=== PATIENT | male | born 1945 | race American Indian/Alaskan Native ===

== ENCOUNTER 2019-04-15 19:33 | Emergency (ER) | payer MEDICARE ==
--- NOTE | 2019-04-15 20:29 | Event Note ---
ED Screening Note ED Screening Note: FEVER AND CHILLS MIN COUGH NAUSEA NO PROBLEMS URINATING TACHY IN TRIAGE ILL APPEARING This initial assessment/diagnostic orders/clinical plan/treatment(s) is/are subject to change based on patients health status, clinical progression and re- assessment by fellow clinical providers in the ED. Further treatment and workup at subsequent clinical providers discretion. Patient/guardian urged not to elope from the ED as their condition may be serious if not clinically assessed and managed. Initial orders include:
--- NOTE | 2019-04-15 21:02 | XRay Report ---
PROCEDURE: XR CHEST ROUTINE 2V TECHNIQUE: PA and lateral chest radiographs were obtained. HISTORY: FEVER COMPARISONS: June 02, 2018. FINDINGS: Heart: Normal. Mediastinum/Vessels: Normal. Lungs/Pleural space: There is mild elevation of right hemidiaphragm. There are no confluent infiltra pawel or mass lesions. Pleural spaces are clear.. Bony thorax: No acute osseous abnormality. IMPRESSION: No acute pulmonary process.. This document is electronically signed by Bipin Sotelo MD., April 15 2019 09:00:12 PM ET
[2019-04-15 21:17] LABS: Hematocrit 33.8 % (35.5-45.6); Hemoglobin 11.9 gm/dl (11.8-15.2); Mean Corpuscular HGB Conc 35 % (32-34); Mean Corpuscular Volume 94 fl (84-94); Platelet Count 131 K/mm3 (140-440); Red Blood Count 3.59 M/mm3 (3.65-5.03)
[2019-04-15 21:27] LABS: Bacteria,Urine 3+ /HPF (Negative); Bilirubin,Urine NEG (Negative); Blood,Urine LG (Negative); Color,Urine Amber (Yellow); Mucus,Urine FEW /HPF
[2019-04-15] MEDS ORDERED: ROCEPHIN/NS 1 GM/50 ML 1 GM/50 ML BAG IV ONE (21:29)
[2019-04-15] MEDS ORDERED: NACL 0.9% 1000 ML 1,000 ML IV ONE (21:29)
[2019-04-15 21:41] LABS: Alanine Aminotransferase 27 units/L (7-56); Albumin 3.2 g/dL (3.9-5); BUN/Creatinine Ratio 14; Blood Urea Nitrogen 15 mg/dL (9-20); Calcium 8.9 mg/dL (8.4-10.2); Hemolysis Index 6
--- NOTE | 2019-04-15 21:46 | Emergency Department Report ---
HPI - General Chief Complaint: Fever Time Seen by Provider: 04/15/19 21:29 - HPI HPI: 73 year-old male presents to the emergency department from home with complaint of a 2 day history of fever, chills, nausea and vomiting. He denies any cough, sore throat, ear pain, chest pain, rash, shortness of breath. He has a past medical history of hypertension. The patient took some Aleve for his symptoms earlier in the day with some transient relief. No recent travel or sick contacts at home. His primary care physician is Dr. Ghosh. ED Past Medical Hx - Past Medical History Previous Medical History?: Yes Hx Hypertension: Yes Hx Heart Attack/AMI: No Hx GERD: Yes Hx Liver Disease: Yes (transaminitis presumed 2/2 cholecystitis) Hx Renal Disease: No Hx Seizures: No Hx Asthma: No - Surgical History Past Surgical History?: Yes Hx Open Heart Surgery: No Additional Surgical History: BACK SURGERY, RIGHT SHOULDER SURGERY,PROSTATE SURGERY - Social History Smoking Status: Never Smoker Substance Use Type: None - Medications Home Medications: Home Medications Medication Instructions Recorded Confirmed Last Taken Type Duloxetine HCl [Cymbalta] 60 mg PO BID 06/03/18 06/03/18 Unknown History amLODIPine [Norvasc] 5 mg PO DAILY 06/03/18 06/03/18 Unknown History Sulfamethoxazole/Trimethoprim 1 each PO BID #10 tablet 04/16/19 Unknown Rx [Bactrim DS TAB] ED Review of Systems ROS: Stated complaint: CHILLS/NAUSEA Other details as noted in HPI Comment: All other systems reviewed and negative Constitutional: chills, fever Eyes: denies: eye pain, vision change ENT: denies: ear pain, throat pain Respiratory: denies: cough, shortness of breath Cardiovascular: denies: chest pain, palpitations Gastrointestinal: denies: abdominal pain, vomiting Musculoskeletal: myalgia (body aches). denies: joint swelling Skin: denies: rash, lesions Neurological: denies: headache, weakness Physical Exam - Physical Exam Vital Signs: Vital Signs 04/15/19 20:26 Temperature 98.2 F Pulse Rate 118 H Respiratory 18 Rate Blood Pressure 139/59 O2 Sat by Pulse 97 Oximetry Physical Exam: GENERAL: The patient is well-developed well-nourished. HENT: Normocephalic. Atraumatic. Patient has moist mucous membranes. Oropharynx is clear without tonsillar hypertrophy, erythema or exudates. EYES: Extraocular motions are intact. Pupils equal reactive to light bilaterally. NECK: Supple. Trachea is midline. CHEST/LUNGS: Clear to auscultation. There is no respiratory distress noted. HEART/CARDIOVASCULAR: Regular. There is mild tachycardia. There is no murmur. ABDOMEN: Abdomen is soft, nontender. Patient has normal bowel sounds. There is no abdominal distention. SKIN: Skin is warm and dry. NEURO: The patient is awake, alert, and oriented. The patient is cooperative. The patient has no focal neurologic deficits. The patient has normal speech. MUSCULOSKELETAL: There is no tenderness or deformity. There is no evidence of acute injury. ED Course Vital Signs 04/15/19 20:26 Temperature 98.2 F Pulse Rate 118 H Respiratory 18 Rate Blood Pressure 139/59 O2 Sat by Pulse 97 Oximetry ED Medical Decision Making - Lab Data Result diagrams: 04/15/19 20:54 04/15/19 20:54 - EKG Data -: EKG Interpreted by Me EKG shows normal: sinus rhythm, axis (left axis deviation), intervals, QRS complexes (LVH), ST-T waves Rate: tachycardia (101 bpm) - EKG Data When compared to previous EKG there are: previous EKG unavailable Interpretation: other (sinus tach at 101 bpm, LAD, LVH) - Radiology Data Radiology results: image reviewed interpreted by me: Chest x-ray does not show any acute process. There are no pleural effusions, obvious pneumonia and there is no pneumothorax. - Medical Decision Making This patient presents to the emergency department with some intermittent fevers and body aches. His vital signs are stable throughout the ED course including being afebrile and he has not had any antipyretics or NSAIDs since early this morning. Patient's labs are mostly unremarkable except for a mild urinary tract infection and some hypokalemia with a potassium of 2.9. He was given both oral and IV potassium for replacement. The patient was given a dose of Rocephin for the urinary tract infection. He was reevaluated multiple times over multiple hours and is feeling improved. He has remained stable. He has good follow-up with primary care. Patient will be discharged home with information about hypokalemia, an antibiotic for the urinary tract infection. He will return to the ER with any worsening of his symptoms or any acute distress. - Differential Diagnosis UTI, sepsis, viral syndrome Critical Care Time: No Critical care attestation.: If time is entered above; I have spent that time in minutes in the direct care of this critically ill patient, excluding procedure time. ED Disposition Clinical Impression: Body aches, Intermittent fever, Hypokalemia UTI (urinary tract infection) Qualifiers: Urinary tract infection type: acute cystitis Hematuria presence: without hematuria Qualified Code(s): N30.00 - Acute cystitis without hematuria Disposition: TO HOME OR SELFCARE Is pt being admited?: No Condition: Stable Instructions: Urinary Tract Infection in Men (ED), Hypokalemia (ED) Additional Instructions: Please follow-up with your primary care physician in the next few days. Return to the emergency Department with any worsening of her symptoms or any acute distress. Take the antibiotics as prescribed. You can take Tylenol every 4 hours and ibuprofen every 6 hours, using weight- based dosing on the back of the bottle, as needed for fever or discomfort. Prescriptions: Sulfamethoxazole/Trimethoprim [Bactrim DS TAB] 1 each PO BID #10 tablet Referrals: ADITI GHOSH MD [Staff Physician] - 2-3 Days Time of Disposition: 00:55
[2019-04-15] MEDS ORDERED: K-DUR PO ONE (22:43)
[2019-04-15] MEDS ORDERED: KCL 10MEQ/100ML 10 MEQ/100 ML BAG IV ONE (22:44)
[2019-04-15 22:56] VITALS: BP 123/59
[2019-04-16] MEDS ORDERED: TORADOL IV ONE (00:19)
== END 2019-04-16 01:25 | disposition home or self-care (01) ==
LOC: ED 19:33
DX: N39.0 Urinary tract infection, site not specified (principal); E87.6 Hypokalemia; M79.10 Myalgia, unspecified site; I10 Essential (primary) hypertension; K21.9 Gastro-esophageal reflux disease without esophagitis; Z98.890 Other specified postprocedural states; Z79.899 Other long term (current) drug therapy
CPT/HCPCS: 36415; 71046; 80053; 81001; 82140; 85027; 87040; 87076; 87086; 87186; 93005; 93010; 96365; 96367; 96375; 99284; J0696; J1885; J3480; J7030

== ENCOUNTER 2019-04-16 10:04 | Inpatient (IN) | payer MEDICARE ==
--- NOTE | 2019-04-16 11:07 | Emergency Department Report ---
ED General Adult HPI - General Chief complaint: Recheck/Abnormal Lab/Rx Stated complaint: ABNORMAL LABS Time Seen by Provider: 04/16/19 10:56 Source: patient, old records reviewed Mode of arrival: Ambulatory Limitations: No Limitations - History of Present Illness Initial comments: 73-year-old male with a past medical history GERD, hypertension, and liver disease presents to the hospital after being called back by hospital staff for positive blood cultures. Patient was seen here and evaluated in the ED yesterday for generalized body aches, fevers, and myalgias for the past 4 days. She also had associated nausea, vomiting, and diarrhea have since improved. He denies cough or cold symptoms, abdominal pain, or dysuria. Patient was diagnosed with UTI and received 1 dose of IV Rocephin 1 g at 21:29 prior to discharge. Patient was discharged on Bactrim twice a day but has not taken a dose this morning. Patient reports feeling better after ED treatment. Preliminary blood cultures 2 positive for gram-negative rods and urine culture pending. PMD: Dr. Rodriguez - Related Data Home Medications Medication Instructions Recorded Confirmed Last Taken Duloxetine HCl [Cymbalta] 60 mg PO BID 06/03/18 06/03/18 Unknown amLODIPine [Norvasc] 5 mg PO DAILY 06/03/18 06/03/18 Unknown Previous Rx's Medication Instructions Recorded Last Taken Type Sulfamethoxazole/Trimethoprim 1 each PO BID #10 tablet 04/16/19 Unknown Rx [Bactrim DS TAB] Allergies Allergy/AdvReac Type Severity Reaction Status Date / Time No Known Allergies Allergy Verified 04/16/19 10:06 ED Review of Systems ROS: Stated complaint: ABNORMAL LABS Other details as noted in HPI Comment: All other systems reviewed and negative ED Past Medical Hx - Past Medical History Previous Medical History?: Yes Hx Hypertension: Yes Hx Heart Attack/AMI: No Hx GERD: Yes Hx Liver Disease: Yes (transaminitis presumed 2/2 cholecystitis) Hx Renal Disease: No Hx Seizures: No Hx Asthma: No - Surgical History Hx Open Heart Surgery: No Additional Surgical History: BACK SURGERY, RIGHT SHOULDER SURGERY,PROSTATE SURGERY - Social History Smoking Status: Never Smoker Substance Use Type: Prescribed - Medications Home Medications: Home Medications Medication Instructions Recorded Confirmed Last Taken Type Duloxetine HCl [Cymbalta] 60 mg PO BID 06/03/18 06/03/18 Unknown History amLODIPine [Norvasc] 5 mg PO DAILY 06/03/18 06/03/18 Unknown History Sulfamethoxazole/Trimethoprim 1 each PO BID #10 tablet 04/16/19 Unknown Rx [Bactrim DS TAB] ED Physical Exam - General Limitations: No Limitations - Other Other exam information: General: No limitations, patient is alert in no acute distress Head exam: Atraumatic, normocephalic Eyes exam: Normal appearance ENT: Moist mucous membrane Neck exam: Normal inspection, full range of motion, no meningismus nontender Respiratory exam: Clear to auscultation bilateral, no wheezes, rales, crackles Cardiovascular: Normal rate and rhythm, normal heart sounds Abdomen: Soft, nondistended, and nontender, with normal bowel sounds, no re bound, or guarding Extremity: Full range of motion normal inspection no deformity Back: Normal Inspection, full range of motion, no tenderness Neurologic: Alert, oriented x3, cranial nerves intact, no motor or sensory deficit Psychiatric: normal affect, normal mood Skin: Warm, dry, intact ED Course Vital Signs 04/16/19 04/16/19 10:09 11:21 Temperature 97.9 F Pulse Rate 82 64 Respiratory 18 16 Rate Blood Pressure 121/61 Blood Pressure 135/64 [Left] O2 Sat by Pulse 99 99 Oximetry ED Medical Decision Making - Lab Data Result diagrams: 04/16/19 11:38 04/16/19 11:38 Lab Results 04/16/19 04/16/19 Range/Units 11:38 11:38 WBC 5.4 (4.5-11.0) K/mm3 RBC 3.48 L (3.65-5.03) M/mm3 Hgb 11.2 L (11.8-15.2) gm/dl Hct 32.6 L (35.5-45.6) % MCV 94 (84-94) fl MCH 32 (28-32) pg MCHC 35 H (32-34) % RDW 15.0 (13.2-15.2) % Plt Count 130 L (140-440) K/mm3 Lymph % (Auto) 7.8 L (13.4-35.0) % [place] % (Auto) 10.6 H (0.0-7.3) % Eos % (Auto) 0.1 (0.0-4.3) % Baso % (Auto) 0.2 (0.0-1.8) % Lymph # 0.4 L (1.2-5.4) K/mm3 [place] # 0.6 (0.0-0.8) K/mm3 Eos # 0.0 (0.0-0.4) K/mm3 Baso # 0.0 (0.0-0.1) K/mm3 Seg Neutrophils % 81.3 H (40.0-70.0) % Seg Neutrophils # 4.4 (1.8-7.7) K/mm3 Sodium 135 L (137-145) mmol/L Potassium 3.8 D (3.6-5.0) mmol/L Chloride 99.8 (98-107) mmol/L Carbon Dioxide 26 (22-30) mmol/L Anion Gap 13 mmol/L BUN 15 (9-20) mg/dL Creatinine 1.0 (0.8-1.5) mg/dL Estimated GFR > 60 ml/min BUN/Creatinine Ratio 15 % Glucose 112 H (75-100) mg/dL Calcium 9.3 (8.4-10.2) mg/dL Magnesium 2.10 (1.7-2.3) mg/dL - Medical Decision Making + blood cultures + UTI no signs of sepsis clinically or septic shock at this time case d/w PMD who will admit Hypokalemia improved with prior tx, mag normal - Differential Diagnosis sepsis, UTI, viral syndrome Critical Care Time: No Critical care attestation.: If time is entered above; I have spent that time in minutes in the direct care of this critically ill patient, excluding procedure time. ED Disposition Clinical Impression: Body aches, UTI (urinary tract infection), Positive blood culture, Thrombocytopenia Disposition: OP ADMIT IP TO THIS HOSP Is pt being admited?: Yes Condition: Stable Time of Disposition: 11:10 (Dr Rodriguez)
[2019-04-16 11:54] LABS: Basophils % (Auto) 0.2 % (0.0-1.8); Eosinophils % (Auto) 0.1 % (0.0-4.3); Hematocrit 32.6 % (35.5-45.6); Hemoglobin 11.2 gm/dl (11.8-15.2); Lymphocytes # (Auto) 0.4 K/mm3 (1.2-5.4); Lymphocytes % (Auto) 7.8 % (13.4-35.0); Mean Corpuscular HGB Conc 35 % (32-34); Mean Corpuscular Volume 94 fl (84-94); Monocytes # (Auto) 0.6 K/mm3 (0.0-0.8); Monocytes % (Auto) 10.6 % (0.0-7.3); Platelet Count 130 K/mm3 (140-440); Red Blood Count 3.48 M/mm3 (3.65-5.03)
[2019-04-16 12:08] LABS: BUN/Creatinine Ratio 15; Blood Urea Nitrogen 15 mg/dL (9-20); Calcium 9.3 mg/dL (8.4-10.2); Hemolysis Index 6
--- NOTE | 2019-04-16 12:37 | History and Physical Report ---
History of Present Illness Date of examination: 04/16/19 Date of admission: 04/16/19 Chief complaint: Sepsis, UTI History of present illness: 73-year-old male with a past medical history GERD, hypertension, and liver disease presents to the hospital after being called back by hospital staff for positive blood cultures. Patient was seen here and evaluated in the ED yesterday for generalized body aches, fevers, and myalgias for the past 4 days. She also had associated nausea, vomiting, and diarrhea have since improved. He denies cough or cold symptoms, abdominal pain, or dysuria. Patient was diagnosed with UTI and received 1 dose of IV Rocephin 1 g at 21:29 prior to discharge. Patient was discharged on Bactrim twice a day but has not taken a dose this morning. Patient reports feeling better after ED treatment. Preliminary blood cultures 2 positive for gram-negative rods and urine culture pending. PMD: Dr. Rodriguez Past History Past Medical History: hypertension, other (liver disease) Past Surgical History: Other (back surgery, right shoulder surgery, post the surgeon,) Social history: denies: smoking, alcohol abuse Family history: no significant family history Medications and Allergies Allergies Allergy/AdvReac Type Severity Reaction Status Date / Time No Known Allergies Allergy Verified 04/16/19 10:06 Home Medications Medication Instructions Recorded Confirmed Last Taken Type Duloxetine HCl [Cymbalta] 60 mg PO BID 06/03/18 06/03/18 Unknown History amLODIPine [Norvasc] 5 mg PO DAILY 06/03/18 06/03/18 Unknown History Sulfamethoxazole/Trimethoprim 1 each PO BID #10 tablet 04/16/19 Unknown Rx [Bactrim DS TAB] Active Meds: Review of systems Constitutional: Well Nourished and Well developed. Head: NC/ AT Eyes: Denies any visual impairments. No discharge from the eyes Nose: Denies any rhinorrhea or epistaxis Throats: Denies any post nasal drainage. Ears: Denies any hearing deficits Cardiovascular system: Denies any chest pain, shortness of breath, orthopnea, paroxysmal nocturnal dyspnea, or palpitation. Respiratory system: Denies any cough, difficulty breathing, wheezing, pleuritic chest pain, Gastrointestinal system: Denies any abdominal pain, nausea vomiting, hematemesis or melena. Neurological system: Denies any headache, slurred speech, facial droop, lateralizing weakness Genitalia system: Denies any dysuria, urinary frequency or urgency, urethral discharge Skin: No rashes, hyperpigmented spots. Hematological: Denies any cervical tenderness hemorrhages or petechia. Immunological: Denies any multiple septic spots, Lymphatic: Denies any generalized lymphadenopathy. Endocrine: Denies any polyuria, polydipsia, polyphagia. No heat or cold intolerance. Musculoskeletal system: No joint pain or swelling. Psych: No visual, tactile, auditory or hallucination Exam - Physical Exam Narrative exam: Constitutional: Well-nourished well-developed. In no distress Head: Normocephalic atraumatic Eyes: Pupils are equal round and reactive to light Nose: No enlarged turbinates, no septal deviation. Mouth: Moist mucous membranes. Neck: Supple no thyromegaly. No bruit. No JVD Heart: Regular rate and rhythm, S1-S2 normal. No rubs murmurs or gallop Lungs: Clear to auscultation bilaterally. no rales or rhonchi Abdomen: Soft, nontender. Bowel sound are present. Extremities: No edema, no cyanosis, no clubbing. Neuro: Alert oriented Oriented x3. No focal sensory or motor deficit. Skin: No rashes or hyperpigmented spots Musculoskeletal system: No joint pain or swelling Hematological: No petechia or subcutanous hemorrhages. Immunological: No multiple septic spots on the skin Lymphatic: No generalized lymphadenopathy Psychiatry: Euthymic. Calm. - Constitutional Vitals: Temp Pulse Resp BP Pulse Ox 97.9 F 64 16 135/64 99 04/16/19 10:09 04/16/19 11:21 04/16/19 11:21 04/16/19 11:21 04/16/19 11:21 Results - Labs CBC & Chem 7: 04/16/19 11:38 04/16/19 11:38 Labs: Abnormal lab results 04/16/19 04/16/19 Range/Units 11:38 11:38 RBC 3.48 L (3.65-5.03) M/mm3 Hgb 11.2 L (11.8-15.2) gm/dl Hct 32.6 L (35.5-45.6) % MCHC 35 H (32-34) % Plt Count 130 L (140-440) K/mm3 Lymph % (Auto) 7.8 L (13.4-35.0) % [place] % (Auto) 10.6 H (0.0-7.3) % Lymph # 0.4 L (1.2-5.4) K/mm3 Seg Neutrophils % 81.3 H (40.0-70.0) % Sodium 135 L (137-145) mmol/L Glucose 112 H (75-100) mg/dL Assessment and Plan - Sepsis from UTI Blood culture was positive for gram-negative rods in 2 of 2 bottles Follow urine culture Comments patient on IV Rocephin - UTI Obtain urine culture Constant with IV Rocephin - Hypokalemia Supplement - Abnormal liver enzymes Current transaminases Obtain Ultrasound of the liver and gallbladder - Hyperglycemia Obtain A1c - DVT prophylaxis with Lovenox and GI with Pepcid - ACP: Patient is full code - Disposition discharge home when clinically stable - Time spent during this admission: 35 minutes in direct patient care and review of laboratory and radiological data, explanaing of care plan to the patiet
[2019-04-16] MEDS ORDERED: PEPCID IV ONE (12:54)
[2019-04-16] MEDS: PEPCID IV SCH ×2 (12:58→21:18)
[2019-04-16] MEDS: ROCEPHIN/NS 1 GM/50 ML 1 GM/50 ML BAG IV SCH (12:58)
[2019-04-16] MEDS ORDERED: NON-FORMULARY (Duloxetine Hcl [Cymbalta] 60 MG) PO SCH (13:00)
[2019-04-16] MEDS ORDERED: NORVASC ONE (14:18)
[2019-04-16] MEDS: NORVASC PO SCH (14:20)
[2019-04-16] MEDS: CYMBALTA PO SCH ×2 (18:01→21:18)
[2019-04-16] MEDS: LOVENOX SUB-Q SCH (21:18)
[2019-04-17] MEDS: CYMBALTA PO SCH ×2 (09:47→21:07)
[2019-04-17] MEDS: PEPCID IV SCH ×2 (09:47→21:06)
[2019-04-17] MEDS: NORVASC PO SCH (09:47)
[2019-04-17] MEDS: ROCEPHIN/NS 1 GM/50 ML 1 GM/50 ML BAG IV SCH (15:12)
[2019-04-17] MEDS: LOVENOX SUB-Q SCH (21:06)
[2019-04-18] MEDS: NORVASC PO SCH (09:10)
[2019-04-18] MEDS: CYMBALTA PO SCH ×2 (09:10→21:33)
[2019-04-18] MEDS: PEPCID IV SCH ×2 (09:10→21:33)
[2019-04-18] MEDS: ROCEPHIN/NS 1 GM/50 ML 1 GM/50 ML BAG IV SCH (13:40)
[2019-04-18] MEDS: LOVENOX SUB-Q SCH (21:33)
[2019-04-19] MEDS: PEPCID IV SCH (09:35)
[2019-04-19] MEDS: NORVASC PO SCH (09:36)
[2019-04-19] MEDS: CYMBALTA PO SCH (09:36)
[2019-04-19] MEDS ORDERED: MIRALAX 3350 PO PRN (10:50)
[2019-04-19 19:46] VITALS: BP 132/73
--- NOTE | 2019-04-19 21:06 | Discharge Summary ---
Providers - Providers Date of Admission: 04/16/19 11:58 Date of discharge: 04/19/19 Attending physician: SUZETTE AQUINO 04/18/19 08:17 Physical Therapy Evaluation and Treat [CONS] Routine Comment: Reason For Exam: Weakness [facility] Reason for admission: sepsis, UTI, hypokalemia, abniorml liver enzymes Condition: Stable Pertinent studies: Chest x-ray was normal Urinalysis that shows evidence of UTI Procedures: None Hospital course: Patient is 73-year-old gentleman who has a history of hypertension, liver disease, GERD, hypertension, presented emergency department on 04/15/2018 with a complaint all fever, body aches, and generalized weakness. Urinalysis showed evidence of urinary tract infection. Patient was given a dose of Rocephin 1 g on discharge from the emergency department on Bactrim tablets. Blood and urine cultures were ordered. Blood and urine culture results was positive for Escherichia coli. This was called back on 04/16/2017 and commenced on IV antibiotics. Patient was admitted and continued on home medications. Fever body aches and chills resolved. Patient therefore been discharged today to follow with primary care physician in 3 days on by mouth Levaquin 500 mg daily for 5 more days. CBC and CMP were also drawn today the result of which would be reevaluated on his follow-up visit in my office in 3 days. Discharge plan was discussed and explained to the patient and the daughter was in the patient's room at the time of this discharge. Condition was satisfactory Disposition: DC-[id number] TO HOME OR SELFCARE Time spent for discharge: 30 min - Discharge Diagnoses (1) Body aches Status: Acute (2) Positive blood culture Status: Acute (3) Biliary colic Status: Acute (4) Sepsis Status: Acute Core Measure Documentation - Palliative Care Palliative Care/ Comfort Measures: Not Applicable - Core Measures Any of the following diagnoses?: none Exam - Physical Exam Narrative exam: Constitutional: Well-nourished well-developed.In no distress Head: Normocephalic atraumatic Eyes: Pupils are equal round and reactive to light Nose: No enlarged turbinates, no septal deviation. Mouth: Moist mucous membranes. Neck: Supple no thyromegaly. No bruit. No JVD Heart: Regular rate and rhythm, S1-S2 normal. No rubs murmurs or gallop Lungs: Clear to auscultation bilaterally. no rales or rhonchi Abdomen: Soft, nontender. Bowel sound are present. Extremities: No edema, no cyanosis, no clubbing. Neuro: Alert oriented Oriented x3. No focal sensory or motor deficit. Skin: No rashes or hyperpigmented spots Musculoskeletal system: No joint pain or swelling Hematological: No petechia or subcutanous hemorrhages. Immunological: No multiple septic spots on the skin Lymphatic: No generalized lymphadenopathy Psychiatry: Euthymic. Calm. - Constitutional Vitals: Temp Pulse Resp BP Pulse Ox 97.8 F 84 18 132/73 99 04/19/19 19:44 04/19/19 19:44 04/19/19 19:44 04/19/19 19:44 04/19/19 19:44 Plan Activity: fall precautions Weight Bearing Status: Weight Bear as Tolerated Diet: regular Follow up with: PRIMARY CAREMD [Referring] - 3-5 Days ADITI GHOSH MD [Staff Physician] - 7 Days Prescriptions: levoFLOXacin [Levaquin TAB] 500 mg PO QDAY #5 tablet amLODIPine [Norvasc] 5 mg PO DAILY #30 tablet
--- NOTE | 2019-04-19 21:34 | Event Note ---
Date: 04/19/19 This was admitted on 04/16/2019 for positive blood and urine culture for gram negative rods. Patient had been given IV Rocephin the day prior on presentation to the emergency department. He was also given by mouth Bactrim prior on 04/15/19 on discharge from the emergency department. However on pt was readmission because of the positive blood culture but was dropped off my list thereafter. Remained afebrile. No chills. No bodyches. White cell count was normal. I was called today by the nurses to reevaluated the patient has remained symptomatically. He is therefore being discharged today on Levaquin po which is the sensitive medication to Escherichia coli cultured in the blood and urine.
[2019-04-19 22:07] LABS: Basophils % (Auto) 0.7 % (0.0-1.8); Eosinophils # (Auto) 0.1 K/mm3 (0.0-0.4); Eosinophils % (Auto) 2.1 % (0.0-4.3); Hematocrit 33.9 % (35.5-45.6); Hemoglobin 11.7 gm/dl (11.8-15.2); Lymphocytes # (Auto) 1.8 K/mm3 (1.2-5.4); Mean Corpuscular HGB Conc 35 % (32-34); Mean Corpuscular Volume 94 fl (84-94); Monocytes # (Auto) 0.5 K/mm3 (0.0-0.8); Monocytes % (Auto) 9.5 % (0.0-7.3); Platelet Count 291 K/mm3 (140-440); Red Blood Count 3.62 M/mm3 (3.65-5.03)
[2019-04-19 22:24] LABS: Alanine Aminotransferase 28 units/L (7-56); Albumin 3.3 g/dL (3.9-5); BUN/Creatinine Ratio 12; Blood Urea Nitrogen 11 mg/dL (9-20); Calcium 8.7 mg/dL (8.4-10.2); Hemolysis Index 1
== END 2019-04-19 21:39 | disposition home or self-care (01) | DRG 872 ==
LOC: ED 10:04 → 2B-ACE 11:58
PROVIDERS: ADMIT Internal Medicine; ATTEND Internal Medicine
DX: A41.9 Sepsis, unspecified organism (principal); N39.0 Urinary tract infection, site not specified; E87.6 Hypokalemia; E11.65 Type 2 diabetes mellitus with hyperglycemia; K21.9 Gastro-esophageal reflux disease without esophagitis; I10 Essential (primary) hypertension; D69.6 Thrombocytopenia, unspecified; K80.50 Calculus of bile duct without cholangitis or cholecystitis without obstruction
CPT/HCPCS: 36415; 71046; 80048; 80053; 81001; 82140; 83735; 85025; 85027; 86850; 86900; 86901; 87040; 87076; 87086; 87116; 87186; 93005; 93010; 96365; 96367; 96375; 99284; G0378; J0696; J1650; J1885; J3480; J7030

== ENCOUNTER 2019-09-29 13:41 | Emergency (ER) | payer MEDICARE ==
--- NOTE | 2019-09-29 13:47 | Emergency Department Report ---
Blank Doc - Documentation Documentation: 74-year-old male that presents with chin lac after trip and hit the top of lad negrita. Denies any head injruies. This initial assessment/diagnostic orders/clinical plan/treatment(s) is/are subject to change based on patient's health status, clinical progression and re- assessment by fellow clinical providers in the ED. Further treatment and workup at subsequent clinical providers discretion. Patient/guardians urged not to elope from the ED as their condition may be serious if not clinically assessed and managed. Initial orders include: 1- Patient sent to [facility] for further evaluation and treatment
--- NOTE | 2019-09-29 14:56 | Emergency Department Report ---
<KAYLEN SHIPMAN Jessica - Last Filed: 09/29/19 21:16> - General Chief Complaint: Wound/Laceration Stated Complaint: CHIN INJURY/PAIN Time Seen by Provider: 09/29/19 13:45 - Related Data Home Medications Medication Instructions Recorded Confirmed Last Taken Duloxetine HCl [Cymbalta] 60 mg PO BID 06/03/18 04/16/19 04/16/19 07:00 Previous Rx's Medication Instructions Recorded Last Taken Type DULoxetine [Cymbalta] 60 mg PO BID capsule 04/19/19 Unknown Rx amLODIPine 5 mg PO DAILY #30 tablet 04/19/19 Unknown Rx levoFLOXacin [Levaquin TAB] 500 mg PO QDAY #5 tablet 04/19/19 Unknown Rx Allergies Allergy/AdvReac Type Severity Reaction Status Date / Time No Known Allergies Allergy Verified 04/16/19 10:06 ED Past Medical Hx - Medications Home Medications: Home Medications Medication Instructions Recorded Confirmed Last Taken Type Duloxetine HCl [Cymbalta] 60 mg PO BID 06/03/18 04/16/19 04/16/19 07:00 History DULoxetine [Cymbalta] 60 mg PO BID capsule 04/19/19 Unknown Rx amLODIPine 5 mg PO DAILY #30 tablet 04/19/19 Unknown Rx levoFLOXacin [Levaquin TAB] 500 mg PO QDAY #5 tablet 04/19/19 Unknown Rx ED Course - Reevaluation(s) Reevaluation #2: Sutures are intact. Patient has noticeable dental MISALIGNMENT anteriorly 09/29/19 21:52 - Consultations Consultation #1: Spoke with the [facility] [facility] transfer [facility] and patient was accepted by attending Dr. MARX 09/29/19 21:16 09/29/19 21:52 ED Medical Decision Making - Radiology Data Radiology results: report reviewed, image reviewed CT maxillofacial without contrast. CLINICAL HISTORY: Facial pain and trauma FINDINGS: There fractures involving the anterior mandible to the level of the alveolar ridge with disruption of multiple teeth as well as mild displacement posteriorly on the right. There is associated adjacent a prominent soft tissue edema anteriorly and posteriorly to this region. The mandibular condyles appear intact. There are healed fractures involving the right maxillary sinus and zygomatic arch from the previous CT of 05/18/2015. There is extensive opacification involving the ethmoid air cells. Mild mucosal thickening is noted within the maxillary sinuses. There is slight deviation of the nasal septum toward the left. No significant inflammatory changes are seen involving the orbits. The mastoid air cells are pneumatized. All CT scans at this location are performed using the CT dose reduction for ALARA by means of automated exposure control. IMPRESSION: There is comminuted fracture extending through the alveolar ridge of the anterior mandible with disruption of multiple teeth and mild displacement posteriorly on the right as described. There has been interval healing of the fractures involving the right maxillary sinus and zygomatic arch with the previous CT of 05/18/2015. Signer Name: Tesfaye Torrez MD Signed: 09/29/2019 6:03 PM Workstation Name: [id number] Transcribed By: MR Dictated By: Tesfaye Torrez MD Electronically Authenticated By: Tesfaye Torrez MD Signed Date/Time: 09/29/19 1803 - Medical Decision Making Physical Thursday 4-year-old male who presents to ED with the mandibular fracture causing a laceration to the chin. Patient received suture repair in the ED. Patient also received pain medication in the ED. Patient is currently stable and in no acute distress. Patient is being transferred to [facility] at the trauma ED Disposition Clinical Impression: Fall, Mandibular fracture, open, Laceration of chin Disposition: [id number]/TX-[id number] ANOTHER TYPE HLTHCARE Is pt being admited?: No Does the pt Need Aspirin: No Condition: Stable Referrals: PRIMARY CARE, [Primary Care Provider] - 3-5 Days <MAVIS LEGER - Last Filed: 09/30/19 17:48> - General Source: patient Mode of arrival: Ambulatory Limitations: No Limitations - History of Present Illness Initial Comments: This is a 74-year-old -[place] male who presents to the emergency room with a laceration to chin status post slipping on ladder 30 minutes to 1 hour prior to arrival. Patient states he was on the ladder about 7 feet at home when he slipped and hit his chin. He noticed a large laceration to chin and his teeth feel loose. Patient states he was unable to control bleeding and decided to come in for further evaluation. Patient denies falling or hitting his head. States no one witnessed him slipping on ladder. He thinks he possibly received a tetanus vaccine last year when he had surgery. He denies loss of c onsciousness, nausea or vomiting, numbness or tingling, swelling. Onset/Timin -: hour(s) Location: face (Chin) 1 - 4 cm laceration into dermis of chin, bloody discharge. 2 - Obvious broken and loose teeth to lower. Place: home Patient Tetanus UTD: Yes Context: accidental Associated Symptoms: pain. denies: loss of feeling/numbness, suspect foreign body present, weakness followed by dizziness, nausea/vomiting, fever Treatments Prior to Arrival: bandage ED Review of Systems ROS: Stated complaint: CHIN INJURY/PAIN Other details as noted in HPI Constitutional: denies: chills, fever Respiratory: denies: cough, shortness of breath, wheezing Cardiovascular: denies: chest pain, palpitations Musculoskeletal: denies: back pain, joint swelling, arthralgia Skin: lesions (laceration to Chin). denies: rash Neurological: denies: headache, weakness, paresthesias Psychiatric: denies: anxiety, depression ED Past Medical Hx - Past Medical History Previous Medical History?: Yes Hx Hypertension: Yes Hx Heart Attack/AMI: No Hx GERD: Yes Hx Liver Disease: Yes (transaminitis presumed 2/2 cholecystitis) Hx Renal Disease: No Hx Sickle Cell Disease: No Hx Seizures: No Hx Asthma: No - Surgical History Hx Open Heart Surgery: No Additional Surgical History: BACK SURGERY, RIGHT SHOULDER SURGERY,PROSTATE SURGERY - Social History Smoking Status: Never Smoker Substance Use Type: None ED Physical Exam - General Limitations: No Limitations General appearance: alert, in no apparent distress - Head Head exam: Present: atraumatic, normocephalic - ENT ENT exam: Present: mucous membranes moist, other (misalignment of teeth 21 through 28, #23, 24, & 25 broken and loose) - Neck Neck exam: Present: normal inspection - Respiratory Respiratory exam: Present: normal lung sounds bilaterally. Absent: respiratory distress - Cardiovascular Cardiovascular Exam: Present: regular rate, normal rhythm. Absent: systolic murmur, diastolic murmur, rubs, gallop - GI/Abdominal GI/Abdominal exam: Present: soft, normal bowel sounds. Absent: distended, tenderness, guarding, rebound, rigid - Neurological Exam Neurological exam: Present: alert, oriented X3, normal gait - Expanded Neurological Exam Expanded Patient oriented to: Present: person, place, time Speech: Present: fluid speech Cranial nerves: EOM's Intact: Normal, Gag Reflex: Normal, Tongue Deviation: Normal, Nystagmus: Normal, Facial Sensation: Normal, Facial Palsy with Forehead Movement: Normal, Facial Palsy without Forehead Movement: Normal Cerebellar function: Finger to Nose: Normal Sensory exam: Upper Extremity Light Touch: Normal, Upper Extremity Pin Prick: Normal, Upper Extremity Temperature: Normal, UE 2 Point Discrimination: Normal Motor strength exam: RUE: 5, LUE: 5 Best Eye Response (Sowmya): (4) open spontaneously Best Motor Response (Sowmya): (6) obeys commands Best Verbal Response (Sowmya): (5) oriented Sowmya Total: 15 - Psychiatric Psychiatric exam: Present: normal affect, normal mood - Skin Skin exam: Present: warm, dry, normal color, other (4 cm linear laceration into dermis, visual intact tendon, bloody discharge, tenderness, no swelling, FROM of mandibule). Absent: intact, rash ED Course Vital Signs 09/29/19 09/29/19 13:44 19:29 Temperature 97.9 F Pulse Rate 86 80 Respiratory 18 17 Rate Blood Pressure 126/72 Blood Pressure 136/74 [Left] O2 Sat by Pulse 98 99 Oximetry - Reevaluation(s) Reevaluation #1: 09/29/19 19:15 Chart signed to Dada Mcdonnell - Laceration /Wound Repair Medial Face Wound Location: face (chin) Wound Length (cm): 4 Wound's Depth, Shape: into muscle, linear Wound Explored: no foreign body removed Irrigated w/ Saline (ccs): 30 Betadine Prep?: Yes Anesthesia: 1% Lidocaine (2% lidocaine without epi) Volume Anesthetic (ccs): 6 Wound Repaired With: sutures Suture Size/Type: 6:0 Number of Sutures: 14 Layer Closure?: Yes Deep Layer Suture Size/Type: 5:0 Number Deep Layer Sutures: 6 Sterile Dressing Applied?: Yes ED Medical Decision Making - Medical Decision Making Patient was examined by me. Patient is nontoxic appearing and stable. Vitals are normal. CT of head and facial bones obtained. Given analgesics while in the ER. There is comminuted fracture extending through the alveolar ridge of the anterior mandible with disruption of multiple teeth and mild displacement posteriorly on the right as described. Chart signed to Senthil WALTON pending CT of head. Critical care attestation.: If time is entered above; I have spent that time in minutes in the direct care of this critically ill patient, excluding procedure time.
[2019-09-29] MEDS ORDERED: LIDOCAINE (2%) 20 MG/1 ML VIAL 20 ML MDV INFILTRATI ONE ×2 (16:05→16:08)
[2019-09-29] MEDS ORDERED: HYDROcodone/ACETAMINOPHEN 5-325 MG TAB PO ONE (17:58)
--- NOTE | 2019-09-29 18:08 | Cat Scan Report ---
CT maxillofacial without contrast. CLINICAL HISTORY: Facial pain and trauma FINDINGS: There fractures involving the anterior mandible to the level of the alveolar ridge with dis ruption of multiple teeth as well as mild displacement posteriorly on the right. There is associated adjacent a prominent soft tissue edema anteriorly and posteriorly to this region. The mandibular cond yles appear intact. There are healed fractures involving the right maxillary sinus and zygomatic arch from the previous C T of 05/18/2015. There is extensive opacification involving the ethmoid air cells. Mild mucosal thicke elsi is noted within the maxillary sinuses. There is slight deviation of the nasal septum toward the left. No significant inflammatory changes are seen involving the orbits. The mastoid air cells are pn eumatized. All CT scans at this location are performed using the CT dose reduction for ALARA by means of automated exposure control. IMPRESSION: There is comminuted fracture extending through the alveolar ridge of the anterior mandible with disru ption of multiple teeth and mild displacement posteriorly on the right as described. There has been interval healing of the fractures involving the right maxillary sinus and zygomatic ar ch with the previous CT of 05/18/2015. Signer Name: Tesfaye Torrez MD Signed: 09/29/2019 6:03 PM Workstation Name: [id number]
[2019-09-29 19:29] VITALS: BP 136/74
--- NOTE | 2019-09-29 19:52 | Cat Scan Report ---
CT head/brain wo con INDICATION / CLINICAL INFORMATION: 74 years Male; fall, r/o bleed or fracture. TECHNIQUE: Routine CT head without contrast. All CT scans at this location are performed using CT dos e reduction for ALARA by means of automated exposure control. COMPARISON: None. FINDINGS: BRAIN / INTRACRANIAL CONTENTS: No acute hemorrhage, mass effect, midline shift, hydrocephalus, or acu te, large territorial infarct. cerebral and cerebellar atrophy. There are areas of decreased attenuation in the white matter of the cerebral hemispheres. These are n onspecific findings and may be related to microangiopathy (hypertension, diabetes, atherosclerosis), given the patient's age. It might be difficult to evaluate for small areas of ischemia without diffus ion imaging by MRI. CRANIOCERVICAL JUNCTION: No significant abnormality. ORBITS: No significant abnormality of visualized orbits. SINUSES / MASTOIDS: There is moderate opacification of the ethmoids. Mild mucosal thickening seen in the maxillary antra. ADDITIONAL FINDINGS: Atherosclerotic disease is seen in the anterior and posterior circulation. IMPRESSION: 1. No focal mass, hemorrhage, hydrocephalus, or acute, large territorial infarct. Signer Name: Deshaun Jewell MD, III Signed: 09/29/2019 7:48 PM Workstation Name: [id number]
== END 2019-09-30 00:25 | disposition other institution (70) ==
LOC: ED 13:41
DX: S02.609B Fracture of mandible, unspecified, initial encounter for open fracture (principal); S01.81XA Laceration without foreign body of other part of head, initial encounter; W11.XXXA Fall on and from ladder, initial encounter; Y93.89 Activity, other specified; Y92.89 Other specified places as the place of occurrence of the external cause; Y99.8 Other external cause status
CPT/HCPCS: 70450; 70486